=== PATIENT | female | born 1930 ===

== ENCOUNTER 2022-01-06 17:48 | Observation (INO) ==
[2022-01-06] MEDS ORDERED: MAGNESIUM SULF RIDER 2 GM/50 ML PREMIX IV PRN (20:38)
[2022-01-06] MEDS ORDERED: MAGNESIUM SULF RIDER 4 GM/100 ML PREMIX IV PRN (20:38)
[2022-01-06] MEDS ORDERED: hydrALAZINE 20 MG/1 ML VIAL IV PRN (20:38)
[2022-01-06] MEDS ORDERED: ACETAMINOPHEN 325 MG TABLET PO PRN (20:38)
[2022-01-06] MEDS ORDERED: ONDANSETRON 4 MG/2 ML VIAL IV PRN (20:38)
[2022-01-06] MEDS ORDERED: ENOXAPARIN 40 MG/0.4 ML SYRINGE SUBCUT SCH (21:00)
[2022-01-06] MEDS: NITROGLYCERIN 2% OINT 1 INCH/GM PACK TOP SCH (21:44)
[2022-01-06 21:48] LABS: Basophils % 0.2 % (0.0-0.8); Hemoglobin 10.8 GM/DL (12.0-16.0); Immature Granulocytes % 0.4 %; Immature Granulocytes Absolute 0.05 #; Lymphocytes # 3.4 10*3/uL (1.4-4.0); Lymphocytes % 29.4 % (21.3-54.2); Mean Corpuscular HGB Conc 31.8 GM/DL (32-36); Mean Corpuscular Volume 88.5 FL (87-102); Mean Platelet Volume 9.4 FL (9.6-12.0); Monocytes # 0.8 10*3/uL (0.11-0.8); Monocytes % 7.2 % (1.7-12.7); Neutrophils % 62.8 % (38.7-73.9); Platelet Count 322 T/CUMM (130-400); Red Blood Count 3.84 MC/CUMM (3.8-5.5); Red Cell Distribution Width 14.6 % (9.3-17.3); White Blood Count 11.6 T/CUMM (4-12)
[2022-01-06 22:15] LABS: Albumin 2.8 G/DL (3.4-5.0); Bilirubin,Total 0.5 MG/DL (0.20-1.00); Calcium 9.5 MG/DL (8.5-10.1); Potassium 3.5 MMOL/L (3.5-5.1)
[2022-01-07] MEDS: NITROGLYCERIN 2% OINT 1 INCH/GM PACK TOP SCH ×2 (03:59→08:29)
[2022-01-07] MEDS ORDERED: NITROGLYCERIN SL 0.4 MG TABLET SL PRN (07:21)
[2022-01-07 07:37] LABS: Basophils % 0.2 % (0.0-0.8); Hematocrit 33.6 VOL% (35.7-47.0); Immature Granulocytes % 0.3 %; Immature Granulocytes Absolute 0.03 #; Lymphocytes # 3.5 10*3/uL (1.4-4.0); Mean Corpuscular HGB Conc 32.7 GM/DL (32-36); Mean Corpuscular Volume 87.3 FL (87-102); Mean Platelet Volume 9.8 FL (9.6-12.0); Monocytes # 0.8 10*3/uL (0.11-0.8); Monocytes % 7.3 % (1.7-12.7); Neutrophils % 59.2 % (38.7-73.9); Platelet Count 354 T/CUMM (130-400); Red Blood Count 3.85 MC/CUMM (3.8-5.5); Red Cell Distribution Width 14.9 % (9.3-17.3); White Blood Count 10.5 T/CUMM (4-12)
[2022-01-07 07:54] LABS: Bilirubin,Total 0.7 MG/DL (0.20-1.00); Calcium 9.5 MG/DL (8.5-10.1); Osmolality,Calculated 284.8 MOS/KG (273-304); Potassium 3.5 MMOL/L (3.5-5.1); Total Protein 7.2 G/DL (6.4-8.2)
[2022-01-07] MEDS ORDERED: FUROSEMIDE 40 MG/4 ML VIAL IV SCH (08:00)
[2022-01-07] MEDS: FLUTICASONE/SALMETEROL 250-50 DISKUS 14 DOSE INH SCH ×2 (08:28→20:29)
[2022-01-07] MEDS: MEGESTROL 400 MG/10 ML UDCUP PO SCH (08:31)
[2022-01-07] MEDS: ASPIRIN CHEW 81 MG TABLET PO SCH (08:31)
[2022-01-07] MEDS: ANASTROZOLE 1 MG TABLET PO SCH (08:31)
[2022-01-07] MEDS: POTASSIUM CHLORIDE 20 MEQ TABLET PO SCH (08:31)
[2022-01-07] MEDS: PANTOPRAZOLE 40 MG TABLET PO SCH (08:31)
[2022-01-07] MEDS: hydrALAZINE 25 MG TABLET PO SCH ×3 (08:31→20:30)
[2022-01-07] MEDS: MAGNESIUM OXIDE 400 MG TABLET PO SCH (08:32)
[2022-01-07] MEDS: NEBIVOLOL 10 MG TABLET PO SCH (08:32)
[2022-01-07] MEDS: SERTRALINE 100 MG TABLET PO SCH (08:32)
[2022-01-07] MEDS: LOTEPREDNOL ETABONATE 0.5% BOTH EYES SCH ×2 (08:33→21:05)
[2022-01-07] MEDS: MEMANTINE 28 MG PO SCH (08:33)
[2022-01-07] MEDS ORDERED: lisinopriL 20 MG TABLET PO SCH (09:00)
[2022-01-07] MEDS ORDERED: TICAGRELOR 90 MG TABLET PO SCH (09:00)
[2022-01-07] MEDS ORDERED: hydrALAZINE 25 MG TABLET PO SCH (09:00)
[2022-01-07] MEDS ORDERED: DICLOFENAC 1% GEL 100 GM TUBE TOP PRN (09:00)
[2022-01-07] MEDS ORDERED: amLODIPine 10 MG TABLET PO SCH (09:00)
[2022-01-07] MEDS ORDERED: ENOXAPARIN 80 MG/0.8 ML SYRINGE SUBCUT ONE (11:00)
[2022-01-07] MEDS: DILTIAZEM 30 MG TABLET PO SCH ×3 (13:32→23:32)
[2022-01-07 18:10] LABS: Free T4 (Free Thyroxine) 1.79 NG/DL (0.76-1.46)
[2022-01-07] MEDS: ATORVASTATIN 80 MG TABLET PO SCH (20:29)
[2022-01-07] MEDS: ISOSORBIDE DINITRATE 20 MG TABLET PO SCH (20:30)
[2022-01-07] MEDS: APIXABAN 2.5 MG TABLET PO SCH (20:30)
[2022-01-07] MEDS: ASCORBIC ACID 500 MG TABLET PO SCH (20:30)
[2022-01-08] MEDS: DILTIAZEM 30 MG TABLET PO SCH ×3 (05:14→18:37)
[2022-01-08 05:27] LABS: Basophils % 0.2 % (0.0-0.8); Hematocrit 31.2 VOL% (35.7-47.0); Hemoglobin 9.9 GM/DL (12.0-16.0); Immature Granulocytes % 0.6 %; Immature Granulocytes Absolute 0.06 #; Lymphocytes # 2.9 10*3/uL (1.4-4.0); Lymphocytes % 27.8 % (21.3-54.2); Mean Corpuscular HGB Conc 31.7 GM/DL (32-36); Mean Corpuscular Volume 88.6 FL (87-102); Mean Platelet Volume 9.8 FL (9.6-12.0); Monocytes # 0.9 10*3/uL (0.11-0.8); Monocytes % 8.7 % (1.7-12.7); Neutrophils % 62.7 % (38.7-73.9); Platelet Count 326 T/CUMM (130-400); Red Blood Count 3.52 MC/CUMM (3.8-5.5); Red Cell Distribution Width 15.1 % (9.3-17.3); White Blood Count 10.3 T/CUMM (4-12)
[2022-01-08 05:45] LABS: Calcium 9.5 MG/DL (8.5-10.1); Osmolality,Calculated 283.1 MOS/KG (273-304)
[2022-01-08] MEDS: NEBIVOLOL 10 MG TABLET PO SCH (08:06)
[2022-01-08] MEDS: ASPIRIN CHEW 81 MG TABLET PO SCH (08:07)
[2022-01-08] MEDS: PANTOPRAZOLE 40 MG TABLET PO SCH (08:07)
[2022-01-08] MEDS: ASCORBIC ACID 500 MG TABLET PO SCH ×2 (08:07→20:47)
[2022-01-08] MEDS: ANASTROZOLE 1 MG TABLET PO SCH (08:07)
[2022-01-08] MEDS: MAGNESIUM OXIDE 400 MG TABLET PO SCH (08:07)
[2022-01-08] MEDS: SERTRALINE 100 MG TABLET PO SCH (08:07)
[2022-01-08] MEDS: APIXABAN 2.5 MG TABLET PO SCH ×2 (08:07→20:47)
[2022-01-08] MEDS: MEGESTROL 400 MG/10 ML UDCUP PO SCH (08:07)
[2022-01-08] MEDS: POTASSIUM CHLORIDE 20 MEQ TABLET PO SCH (08:07)
[2022-01-08] MEDS: FLUTICASONE/SALMETEROL 250-50 DISKUS 14 DOSE INH SCH ×2 (08:08→20:47)
[2022-01-08] MEDS: hydrALAZINE 25 MG TABLET PO SCH ×3 (08:08→20:47)
[2022-01-08] MEDS: LOTEPREDNOL ETABONATE 0.5% BOTH EYES SCH ×2 (08:09→21:00)
[2022-01-08] MEDS: MEMANTINE 28 MG PO SCH (08:09)
[2022-01-08] MEDS: SODIUM CHLORIDE 0.9% 1,000 ML IV SCH ×2 (08:12→22:28)
[2022-01-08] MEDS: ISOSORBIDE DINITRATE 20 MG TABLET PO SCH ×2 (09:42→20:58)
[2022-01-08 14:17] LABS: Calcium 8.9 MG/DL (8.5-10.1); Osmolality,Calculated 281.4 MOS/KG (273-304); Potassium 4.4 MMOL/L (3.5-5.1)
[2022-01-08] MEDS: ATORVASTATIN 80 MG TABLET PO SCH (20:58)
[2022-01-09] MEDS: DILTIAZEM 30 MG TABLET PO SCH (01:17)
[2022-01-09 04:20] LABS: Basophils % 0.2 % (0.0-0.8); Hematocrit 28.8 VOL% (35.7-47.0); Hemoglobin 8.9 GM/DL (12.0-16.0); Immature Granulocytes % 0.4 %; Immature Granulocytes Absolute 0.04 #; Lymphocytes # 3.3 10*3/uL (1.4-4.0); Lymphocytes % 30.5 % (21.3-54.2); Mean Corpuscular HGB Conc 30.9 GM/DL (32-36); Mean Corpuscular Volume 90.6 FL (87-102); Mean Platelet Volume 10.2 FL (9.6-12.0); Monocytes # 0.9 10*3/uL (0.11-0.8); Monocytes % 7.9 % (1.7-12.7); Platelet Count 324 T/CUMM (130-400); Red Blood Count 3.18 MC/CUMM (3.8-5.5); Red Cell Distribution Width 14.8 % (9.3-17.3); White Blood Count 10.8 T/CUMM (4-12)
[2022-01-09 04:42] LABS: Calcium 8.8 MG/DL (8.5-10.1); Osmolality,Calculated 282.5 MOS/KG (273-304); Potassium 4.1 MMOL/L (3.5-5.1)
[2022-01-09] MEDS: ASPIRIN CHEW 81 MG TABLET PO SCH (08:43)
[2022-01-09] MEDS: APIXABAN 2.5 MG TABLET PO SCH ×2 (08:43→21:34)
[2022-01-09] MEDS: ASCORBIC ACID 500 MG TABLET PO SCH ×2 (08:43→21:33)
[2022-01-09] MEDS: DILTIAZEM CD 120 MG CAPSULE PO SCH (08:44)
[2022-01-09] MEDS: MAGNESIUM OXIDE 400 MG TABLET PO SCH (08:44)
[2022-01-09] MEDS: PANTOPRAZOLE 40 MG TABLET PO SCH (08:44)
[2022-01-09] MEDS: NEBIVOLOL 10 MG TABLET PO SCH (08:44)
[2022-01-09] MEDS: hydrALAZINE 25 MG TABLET PO SCH ×3 (08:44→21:35)
[2022-01-09] MEDS: ISOSORBIDE DINITRATE 20 MG TABLET PO SCH ×2 (08:44→21:33)
[2022-01-09] MEDS: methIMAzole 5 MG TABLET PO SCH (08:44)
[2022-01-09] MEDS: POTASSIUM CHLORIDE 20 MEQ TABLET PO SCH (08:44)
[2022-01-09] MEDS: ANASTROZOLE 1 MG TABLET PO SCH (08:44)
[2022-01-09] MEDS: SERTRALINE 100 MG TABLET PO SCH (08:45)
[2022-01-09] MEDS: MEGESTROL 400 MG/10 ML UDCUP PO SCH (08:45)
[2022-01-09] MEDS: FLUTICASONE/SALMETEROL 250-50 DISKUS 14 DOSE INH SCH ×2 (08:46→21:33)
[2022-01-09] MEDS: LOTEPREDNOL ETABONATE 0.5% BOTH EYES SCH ×2 (08:47→21:35)
[2022-01-09] MEDS: MEMANTINE 28 MG PO SCH (08:47)
[2022-01-09] MEDS: SODIUM CHLORIDE 0.9% 1,000 ML IV SCH (11:48)
[2022-01-09] MEDS: ATORVASTATIN 80 MG TABLET PO SCH (21:33)
[2022-01-10 06:20] LABS: Calcium 9.3 MG/DL (8.5-10.1); Potassium 4.3 MMOL/L (3.5-5.1)
[2022-01-10 07:55] VITALS: BP 156/66
[2022-01-10] MEDS: methIMAzole 5 MG TABLET PO SCH (09:34)
[2022-01-10] MEDS: POTASSIUM CHLORIDE 20 MEQ TABLET PO SCH (09:34)
[2022-01-10] MEDS: ASCORBIC ACID 500 MG TABLET PO SCH (09:34)
[2022-01-10] MEDS: ISOSORBIDE DINITRATE 20 MG TABLET PO SCH (09:35)
[2022-01-10] MEDS: APIXABAN 2.5 MG TABLET PO SCH (09:35)
[2022-01-10] MEDS: ANASTROZOLE 1 MG TABLET PO SCH (09:35)
[2022-01-10] MEDS: hydrALAZINE 25 MG TABLET PO SCH (09:35)
[2022-01-10] MEDS: PANTOPRAZOLE 40 MG TABLET PO SCH (09:35)
[2022-01-10] MEDS: NEBIVOLOL 10 MG TABLET PO SCH (09:35)
[2022-01-10] MEDS: SERTRALINE 100 MG TABLET PO SCH (09:35)
[2022-01-10] MEDS: DILTIAZEM CD 120 MG CAPSULE PO SCH (09:36)
[2022-01-10] MEDS: MEGESTROL 400 MG/10 ML UDCUP PO SCH (09:36)
[2022-01-10] MEDS: FLUTICASONE/SALMETEROL 250-50 DISKUS 14 DOSE INH SCH (09:36)
[2022-01-10] MEDS: ASPIRIN CHEW 81 MG TABLET PO SCH (09:36)
[2022-01-10] MEDS: LOTEPREDNOL ETABONATE 0.5% BOTH EYES SCH (09:37)
[2022-01-10] MEDS: MAGNESIUM OXIDE 400 MG TABLET PO SCH (09:37)
[2022-01-10] MEDS: MEMANTINE 28 MG PO SCH (09:46)
[2022-01-10] MEDS: SODIUM CHLORIDE 0.9% 1,000 ML IV SCH (10:16)
== END 2022-01-10 14:37 | disposition home health service (06) ==
LOC: SUATTDRO 22:01 → INTOOBSV 22:01 → N.2W 22:01
PROVIDERS: ADMIT Internal Medicine; ATTEND Emergency Medicine